=== PATIENT | male | born 1960 ===

== ENCOUNTER 2022-12-03 20:52 | Emergency (ER) | payer BC, SELFPAY ==
[2022-12-03 21:06] VITALS: BP 133/73; PULSE 85; RESP 16; TEMP 36.6; O2SAT 96; BMI 25.0
--- NOTE | 2022-12-03 21:13 | DI.RAD.S_ITS ---
PROCEDURE: XR TOE RT MIN 2V INDICATIONS: black on bottom, white, swollen TECHNIQUE: AP view of the foot and 2 additional views of the great toe acquired. COMPARISON: None. FINDINGS: Bones: There is moderate joint space narrowing at the 1st metatarsophalangeal joint with periarticular sclerosis and lucencies as well as irregularity along the articular surfaces. Soft tissues: There is periarticular soft tissue swelling at the 1st metatarsophalangeal joint. IMPRESSION: 1. Bony irregularity along the 1st metatarsophalangeal joint with periarticular sclerosis. The differential includes septic arthritis/osteomyelitis versus an inflammatory arthropathy. Dictated by: Satya Hook M.D. on 12/03/2022 at 22:46 Approved by: Satya Hook M.D. on 12/03/2022 at 22:51
[2022-12-03 21:33] LABS: Add Manual Diff / Slide Review NO; Basophils Absolute Auto 100 /uL (0-100); Basophils Percent Auto 0.6 % (0-2); Eosinophils Absolute Auto 200 /uL (0-450); Eosinophils Percent Auto 2.4 % (2-4); Hematocrit 38.6 % (41-53); Hemoglobin 13.6 g/dL (13.5-17.5); Lymphocytes Absolute Auto 1800 /uL (1100-4500); Lymphocytes Percent Auto 17.9 % (25-40); Mean Corpuscular HGB Conc 35.3 % (30-36); Mean Corpuscular Hemoglobin 33.4 PG (26-34); Mean Corpuscular Volume 94.7 fL (80-100); Monocytes Absolute Auto 700 /uL (0-900); Monocytes Percent Auto 7.2 % (3-14); Neutrophils Absolute Auto 7300 /uL (1500-7000); Neutrophils Percent Auto 71.9 % (50-75); Platelet Count 319 X10^3/uL (150-400); Red Blood Cell Count 4.08 X10^6/uL (4.5-5.9); Red Cell Distribution Width 12.7 % (11.6-14.8); White Blood Cell Count 10.1 X10^3/uL (4.5-11.0)
[2022-12-03 21:39] LABS: INR 1.1 (0.9-1.3); Prothrombin Time 12.4 SECONDS (10.1-12.7)
[2022-12-03 21:41] LABS: PTT Partial Thromboplastin Tim 31 SECONDS (26-36)
[2022-12-03 21:44] LABS: Lactate (Lactic Acid) 2.2 mmol/L (0.7-2.1)
[2022-12-03 21:46] LABS: Alanine Aminotransferase 23 IU/L (<50); Albumin 4.3 g/dL (3.5-5.0); Albumin Globulin Ratio 1.2 (1.0-2.8); Alkaline Phosphatase 93 U/L (38-126); Aspartate Aminotransferase 28 IU/L (17-59); BUN Creatinine Ratio 15.9 (6-22); Bilirubin Total 0.6 mg/dL (0.2-1.3); Blood Urea Nitrogen 14 mg/dL (9-20); Calcium 9.1 mg/dL (8.4-10.2); Carbon Dioxide 23 mmol/L (22-32); Chloride 94 mmol/L (98-107); Estimated Glomerular Filt Rate > 60 mL/min (>60); Globulin 3.7 g/dL (1.7-4.1); Glucose 351 mg/dL (80-110); HEMOLYSIS < 15 (0-50); Lipase 162 U/L (23-300); Potassium 4.4 mmol/L (3.4-5.1); Sodium 129 mmol/L (137-145)
[2022-12-03 22:49] VITALS: PULSE 79; O2SAT 96
--- NOTE | 2022-12-03 22:50 | ED.WOUNDLAC ---
HPI - Wound/Laceration General Chief Complaint: Wound/Laceration Stated Complaint: Swollen foot Time Seen by Provider: 12/03/22 22:45 Source: patient and family Mode of arrival: Ambulatory History of Present Illness HPI narrative: Patient is a 62-year-old male. A une-wutuiue-qzdyfbjvi diabetic who is here for evaluation redness and some discomfort to the 2nd toe on his right foot. He states that he started to notice it becoming somewhat uncomfortable couple days ago but was really over the past 24 hours that he is noticed the redness. He states he normally has feeling in the toe but has decreased feeling today. States there is redness on the top of his foot. No drainage. No specific trauma. Has never had anything like this in the past. He has been trying to treated at home with alcohol and topical antibiotic ointment but because it turned red he decided to come to the ER to have it evaluated. Related Data Home Medications Medication Instructions Recorded Confirmed aspirin 81 mg tablet 81 mg PO DAILY 12/03/22 12/03/22 empagliflozin 25 mg tablet 25 mg PO DAILY 12/03/22 12/03/22 (Jardiance) lisinopril 20 mg tablet 20 mg PO DAILY 12/03/22 12/03/22 Previous Rx's Medication Instructions Recorded atorvastatin 80 mg tablet (Lipitor) 80 mg PO HS #90 tabs 09/10/16 hydrochlorothiazide 12.5 mg 12.5 mg PO QDAY #90 caps 09/17/16 capsule (Microzide) metformin 1,000 mg tablet 1,000 mg PO BID #180 tabs 09/17/16 pioglitazone 45 mg tablet (Actos) 45 mg PO QDAY #90 tabs 09/17/16 clindamycin HCl 300 mg capsule 300 mg PO QID 7 days #28 caps 12/04/22 Allergies Allergy/AdvReac Type Severity Reaction Status Date / Time No Known Drug Allergies Allergy Verified 12/03/22 21:06 Patient History Social History Smoking Status: Former smoker Smoking Status: Former smoker alcohol intake frequency: 3 or more drinks per day Alcohol type: beer Substance Use Type: does not use Exam Initial Vital Signs Initial Vital Signs: Vital Signs Temperature 97.9 F 12/03/22 21:06 Pulse Rate 85 12/03/22 21:06 Respiratory Rate 16 12/03/22 21:06 Blood Pressure 133/73 12/03/22 21:06 Pulse Oximetry 96 12/03/22 21:06 Oxygen Delivery Method Room Air 12/03/22 21:06 Const General: cooperative and No ill appearing Cardio Pulses: dorsalis pedis present on the right Skin Other: Patient has erythema to the right 2nd toe. A circumferential. It does extend up to the dorsum of the right forefoot. There is also a ulceration with central necrosis on the volar aspect. Neuro Other: Decreased sensation to light touch to the right 2nd toe Extrem Other: Swelling and redness to the right 2nd toe. Course Orders Ordered: ED Orders 12/03/22 21:13 XR toe RT min 2V Stat 12/03/22 21:21 Complete Blood Count AUTO DIFF Stat Comprehensive Metabolic Panel Stat Lactate (Lactic Acid) Stat Lipase Stat PTT Partial Thromboplastin Tito Stat Procalcitonin Stat Prothrombin Time INR Stat Discontinued Medications Clindamycin Phosphate (Cleocin) 900 mg in 50 mls @ 50 mls/hr IV NOW ONE Stop: 12/03/22 23:49 Last Infusion: 12/04/22 00:16 Dose: 0 mls/hr Documented By: Admin: 12/03/22 23:09 Dose: 50 mls/hr Documented By: ENEDINA Vital Signs Vital signs: Vital Signs - 8 hr 12/03/22 21:06 12/03/22 22:49 12/04/22 00:16 Temperature 97.9 F Pulse Rate 85 79 73 Respiratory Rate 16 16 Blood Pressure 133/73 138/77 Pulse Oximetry 96 96 97 Oxygen Delivery Method Room Air Room Air MDM - Wound/Laceration Lab Data Attestation: I reviewed the patient's lab results. 12/03/22 21:21 12/03/22 21:21 Labs: Lab Results 12/03/22 12/03/22 12/03/22 Range/Units 21:21 21:21 21:21 WBC 10.1 (4.5-11.0) X10^3/uL RBC 4.08 L (4.5-5.9) X10^6/uL Hgb 13.6 (13.5-17.5) g/dL Hct 38.6 L (41-53) % MCV 94.7 (80-100) fL MCH 33.4 (26-34) PG MCHC 35.3 (30-36) % RDW 12.7 (11.6-14.8) % Plt Count 319 (150-400) X10^3/uL Neut % (Auto) 71.9 (50-75) % Lymph % (Auto) 17.9 L (25-40) % [place] % (Auto) 7.2 (3-14) % Eos % (Auto) 2.4 (2-4) % Baso % (Auto) 0.6 (0-2) % Neut # (Auto) 7300 H (3730-3618) /uL Lymph # (Auto) 1800 (4193-8790) /uL [place] # (Auto) 700 (0-900) /uL Eos # (Auto) 200 (0-450) /uL Baso # (Auto) 100 (0-100) /uL PT 12.4 (10.1-12.7) SECONDS INR 1.1 (0.9-1.3) APTT 31 (26-36) SECONDS Sodium 129 L (137-145) mmol/L Potassium 4.4 (3.4-5.1) mmol/L Chloride 94 L (98-107) mmol/L Carbon Dioxide 23 (22-32) mmol/L BUN 14 (9-20) mg/dL Creatinine 0.88 (0.66-1.25) mg/dL Estimated GFR > 60 (>60) mL/min BUN/Creatinine Ratio 15.9 (6-22) Glucose 351 H (80-110) mg/dL Lactate (0.7-2.1) mmol/L Calcium 9.1 (8.4-10.2) mg/dL Total Bilirubin 0.6 (0.2-1.3) mg/dL AST 28 (17-59) IU/L ALT 23 (<50) IU/L Alkaline Phosphatase 93 (38-126) U/L Total Protein 8.0 (6.3-8.2) g/dL Albumin 4.3 (3.5-5.0) g/dL Globulin 3.7 (1.7-4.1) g/dL Albumin/Globulin Ratio 1.2 (1.0-2.8) Lipase 162 (23-300) U/L Procalcitonin 0.10 (<0.5) ng/mL 12/03/22 12/03/22 Range/Units 21:21 23:42 WBC (4.5-11.0) X10^3/uL RBC (4.5-5.9) X10^6/uL Hgb (13.5-17.5) g/dL Hct (41-53) % MCV (80-100) fL MCH (26-34) PG MCHC (30-36) % RDW (11.6-14.8) % Plt Count (150-400) X10^3/uL Neut % (Auto) (50-75) % Lymph % (Auto) (25-40) % [place] % (Auto) (3-14) % Eos % (Auto) (2-4) % Baso % (Auto) (0-2) % Neut # (Auto) (6082-0501) /uL Lymph # (Auto) (5320-7694) /uL [place] # (Auto) (0-900) /uL Eos # (Auto) (0-450) /uL Baso # (Auto) (0-100) /uL PT (10.1-12.7) SECONDS INR (0.9-1.3) APTT (26-36) SECONDS Sodium (137-145) mmol/L Potassium (3.4-5.1) mmol/L Chloride (98-107) mmol/L Carbon Dioxide (22-32) mmol/L BUN (9-20) mg/dL Creatinine (0.66-1.25) mg/dL Estimated GFR (>60) mL/min BUN/Creatinine Ratio (6-22) Glucose (80-110) mg/dL Lactate 2.2 H 1.9 (0.7-2.1) mmol/L Calcium (8.4-10.2) mg/dL Total Bilirubin (0.2-1.3) mg/dL AST (17-59) IU/L ALT (<50) IU/L Alkaline Phosphatase (38-126) U/L Total Protein (6.3-8.2) g/dL Albumin (3.5-5.0) g/dL Globulin (1.7-4.1) g/dL Albumin/Globulin Ratio (1.0-2.8) Lipase (23-300) U/L Procalcitonin (<0.5) ng/mL Imaging Data Extremity x-ray #1: Radiologist's Impression: PROCEDURE:? XR TOE RT MIN 2V ? INDICATIONS:? black on bottom, white, swollen ? TECHNIQUE:? AP view of the foot and 2 additional views of the great toe acquired.? ? COMPARISON:? None. ? FINDINGS:? ? Bones:? There is moderate joint space narrowing at the 1st metatarsophalangeal joint with periarticular sclerosis and lucencies as well as irregularity along the articular surfaces. ? Soft tissues:? There is periarticular soft tissue swelling at the 1st metatarsophalangeal joint. ? IMPRESSION:? ? 1. Bony irregularity along the 1st metatarsophalangeal joint with periarticular sclerosis.? The differential includes septic arthritis/osteomyelitis versus an inflammatory arthropathy. MDM Narrative Medical decision making narrative: Patient with an obvious cellulitis to the right 2nd toe with ulcerations on the pad of that toe. There is redness that extends to the forefoot. Patient is nontoxic appearing. His labs are relatively unremarkable. X-ray shows no lytic lesions of that toe. I did discuss the case with Dr. Joe with orthopedic surgery who evaluated the x-ray. She stated that we could attempt outpatient antibiotics and have the patient follow-up in the clinic next week. He was given a dose of antibiotics here in the ER and a prescription was sent to the pharmacy of his choice. He was given very specific return precautions. He expressed understanding and agreement. Discharge Plan Departure Patient Disposition: Home Clinical Impression: Cellulitis Instructions: DI for Cellulitis -- Adult Activity Restrictions/Additional Instructions: [facility]. Please pick them up and start taking them as directed. I also recommend on Tuesday that you contact the orthopedic surgeon at the number provided below for a follow-up. Return to the emergency department for new or worsening symptoms. Prescriptions: New clindamycin HCl 300 mg capsule 300 mg PO QID 7 Days Qty: 28 0RF No Action atorvastatin [Lipitor] 80 MG tablet 80 mg PO HS Qty: 90 1RF pioglitazone [Actos] 45 MG tablet 45 mg PO QDAY Qty: 90 1RF metformin 1,000 MG tablet 1,000 mg PO BID Qty: 180 1RF hydrochlorothiazide [Microzide] 12.5 MG capsule 12.5 mg PO QDAY Qty: 90 1RF lisinopril 20 mg tablet 20 mg PO DAILY Adult Low Dose Aspirin 81 mg Tablet 81 mg PO DAILY Jardiance 25 mg tablet 25 mg PO DAILY Referrals: Tammie Joe MD [Physician] - Slim Hill MD [Primary Care Provider] - Stand Alone Forms: Patient Portal/API
[2022-12-03] MEDS: CLINDAMYCIN 900 MG/50 ML PIGGYBACK 50 MG IV (23:09)
[2022-12-03 23:26] LABS: Reflexed Lactate in 2 Hours Y
[2022-12-04 00:06] LABS: Lactate 2HR (Lactic Acid Rflx) 1.9 mmol/L (0.7-2.1)
[2022-12-04 00:16] VITALS: BP 138/77; PULSE 73; RESP 16; O2SAT 97
== END 2022-12-04 00:17 | disposition home or self-care (01) ==
PROVIDERS: Emergency Provider Emergency Medicine; PCP Family Medicine
DX: L03.031 Cellulitis of right toe (principal)
CPT/HCPCS: 36415; 73660; 80053; 83605; 83690; 84145; 85025; 85610; 85730; 96365; 99284

== ENCOUNTER 2022-12-18 15:55 | Inpatient (IN) | payer BC, SELFPAY ==
[2022-12-18 15:58] VITALS: BP 151/76; PULSE 99; RESP 17; TEMP 36.7; O2SAT 97; BMI 26.2
--- NOTE | 2022-12-18 16:12 | DI.RAD.S_ITS ---
PROCEDURE: XR FOOT RT MIN 3V INDICATIONS: worsening infection TECHNIQUE: 3 views of the foot were acquired. COMPARISON: None. FINDINGS: Bones: 1st MTP joint arthritic changes noted. Intertarsal degenerative irregularity noted as well. Diffuse small vessel vascular calcification. No lytic or blastic lesion. Amputation of the 2nd distal phalangeal tuft noted with soft tissue swelling Soft tissues: No tibiotalar joint effusion. Achilles tendon appears normal. IMPRESSION: Distal 2nd handle tuft amputation with soft tissue swelling. No lytic or blastic lesion Degenerative arthritic changes Small vessel atherosclerotic vascular calcification Approved by: Edison Cordoba M.D. on 12/18/2022 at 16:47
[2022-12-18 16:33] LABS: Add Manual Diff / Slide Review NO; Basophils Absolute Auto 100 /uL (0-100); Basophils Percent Auto 0.8 % (0-2); Eosinophils Absolute Auto 400 /uL (0-450); Eosinophils Percent Auto 3.5 % (2-4); Hematocrit 39.9 % (41-53); Hemoglobin 14.1 g/dL (13.5-17.5); Lymphocytes Absolute Auto 2200 /uL (1100-4500); Lymphocytes Percent Auto 20.3 % (25-40); Mean Corpuscular HGB Conc 35.4 % (30-36); Mean Corpuscular Hemoglobin 33.1 PG (26-34); Mean Corpuscular Volume 93.5 fL (80-100); Monocytes Absolute Auto 800 /uL (0-900); Monocytes Percent Auto 7.1 % (3-14); Neutrophils Absolute Auto 7400 /uL (1500-7000); Neutrophils Percent Auto 68.3 % (50-75); Platelet Count 398 X10^3/uL (150-400); Red Blood Cell Count 4.27 X10^6/uL (4.5-5.9); Red Cell Distribution Width 12.7 % (11.6-14.8); White Blood Cell Count 10.8 X10^3/uL (4.5-11.0)
[2022-12-18 16:42] LABS: INR 1.1 (0.9-1.3); Prothrombin Time 12.2 SECONDS (10.1-12.7)
[2022-12-18 16:44] LABS: PTT Partial Thromboplastin Tim 32 SECONDS (26-36)
[2022-12-18 16:45] LABS: Lactate (Lactic Acid) 2.5 mmol/L (0.7-2.1)
[2022-12-18 16:47] LABS: Alanine Aminotransferase 26 IU/L (<50); Albumin 4.2 g/dL (3.5-5.0); Alkaline Phosphatase 142 U/L (38-126); Aspartate Aminotransferase 30 IU/L (17-59); Bilirubin Total 0.7 mg/dL (0.2-1.3); Blood Urea Nitrogen 19 mg/dL (9-20); Calcium 9.9 mg/dL (8.4-10.2); Carbon Dioxide 27 mmol/L (22-32); Chloride 90 mmol/L (98-107); Estimated Glomerular Filt Rate > 60 mL/min (>60); Globulin 4.2 g/dL (1.7-4.1); Glucose 404 mg/dL (80-110); HEMOLYSIS < 15 (0-50); Lipase 204 U/L (23-300); Potassium 4.5 mmol/L (3.4-5.1); Sodium 127 mmol/L (137-145); Total Protein 8.4 g/dL (6.3-8.2)
--- NOTE | 2022-12-18 16:57 | ED.EXTPRO ---
HPI - Extremity Problem General Chief complaint: Extremity Problem,Nontraumatic Stated complaint: Foot inf. Time Seen by Provider: 12/18/22 16:00 Source: patient Mode of arrival: Ambulatory History of Present Illness HPI Narrative: 62-year-old male [id number] diabetic here for worsening pain, redness and swelling on his right foot. He is had known necrotic tissue on his right 2nd toe and is scheduled for an outpatient toe amputation later in the week. He is now been on his 3rd antibiotic and symptoms are worsening. Thankfully he has no fever or shaking chills and denies nausea, vomiting or diarrhea. He was initially on clindamycin, then Bactrim and currently on Augmentin. He has been taking his other medications as directed. Related Data Home Medications Medication Instructions Recorded Confirmed aspirin 81 mg tablet 81 mg PO DAILY 12/03/22 12/18/22 empagliflozin 25 mg tablet 25 mg PO DAILY 12/03/22 12/18/22 (Jardiance) lisinopril 20 mg tablet 20 mg PO DAILY 12/03/22 12/18/22 Previous Rx's Medication Instructions Recorded atorvastatin 80 mg tablet (Lipitor) 80 mg PO HS #90 tabs 09/10/16 hydrochlorothiazide 12.5 mg 12.5 mg PO QDAY #90 caps 09/17/16 capsule (Microzide) metformin 1,000 mg tablet 1,000 mg PO BID #180 tabs 09/17/16 pioglitazone 45 mg tablet (Actos) 45 mg PO QDAY #90 tabs 09/17/16 Allergies Allergy/AdvReac Type Severity Reaction Status Date / Time No Known Drug Allergies Allergy Verified 12/18/22 15:58 Review of Systems Review of Systems Narrative: GENERAL: Denies chills, fatigue, malaise, fever, sweats. HEENT: Denies sinus pain, ear pain, sore throat, difficulty swallowing, dizziness. RESPIRATORY: Denies dyspnea, cough, wheezing, hemoptysis, sputum. CARDIOVASCULAR: Denies chest pain, palpitations, orthopnea, edema, GASTROINTESTINAL: Denies nausea, vomiting, abdominal pain, diarrhea, constipation, melena. : Denies dysuria, frequency, incontinence, hematuria, urinary retention. MUSCULOSKELETAL: See HPI SKIN: See HPI NEUROLOGIC: Denies weakness, headache, numbness, change in speech, confusion, seizures, incoordination. PSYCHIATRIC: No concerning psychosocial issues. 12 point review of systems is negative except for those stated above Patient History Social History household members: spouse Smoking Status: Former smoker Smoking Status: Former smoker alcohol intake frequency: 3 or more drinks per day Alcohol type: beer Substance Use Type: does not use Exam Narrative Exam Narrative: GENERAL: [62] year old patient appears stated age. Well-developed patient, in mild distress. HEAD: Atraumatic. Normocephalic. EYES: Pupils equal round and reactive. Extraocular motions intact. No scleral icterus. No injection or drainage. ENT: Nose without bleeding, purulent drainage. Throat without erythema, tonsillar hypertrophy or exudate. Airway patent. NECK: Trachea midline. Non tender CARDIOVASCULAR: Regular rate and rhythm without murmurs, gallops, or rubs. RESPIRATORY: Clear to auscultation. Breath sounds equal bilaterally. No wheezes, rales, or rhonchi. GASTROINTESTINAL: Abdomen soft, non-tender, nondistended. EXTREMITIES: Right 2nd toe is necrotic to the PIP with no sensation or drainage, more proximal skin is edematous and erythematous and extending into the base of the 3rd toe and on the dorsum of the foot BACK: Nontender without deformity or crepitance. No flank tenderness. NEURO: AOx3. SKIN: No rash or erythema of visible areas Initial Vital Signs Initial Vital Signs: Vital Signs Temperature 98.1 F 12/18/22 15:58 Pulse Rate 99 H 12/18/22 15:58 Respiratory Rate 17 12/18/22 15:58 Blood Pressure 151/76 H 12/18/22 15:58 Pulse Oximetry 97 12/18/22 15:58 Oxygen Delivery Method Room Air 12/18/22 15:58 Course Orders Ordered: Acetaminophen (Acetaminophen 325 Mg Tablet) 650 mg PO Q6H PRN PRN Reason: Fever/Mild Pain (1-3) Aspirin (Aspirin 81 Mg Chew Tab) 81 mg PO DAILY DANIELLE Atorvastatin Calcium (Atorvastatin 20 Mg Tablet) 80 mg PO BEDTIME DANIELLE Last Admin: 12/18/22 20:43 Dose: Not Given Documented By: Admin: 12/18/22 20:42 Dose: 80 mg Documented By: ANITHA Bisacodyl (Bisacodyl 10 Mg Supp) 10 mg [place] DAILY PRN PRN Reason: Constipation Dextrose (Dextrose 50 % In Water 25 Gm/50 Ml Syringe) 25 gm IV PRN PRN; Protocol PRN Reason: Hypoglycemia Docusate Sodium (Docusate 100 Mg Capsule) 100 mg PO BID DANIELLE Last Admin: 12/18/22 20:42 Dose: 100 mg Documented By: ANITHA Dextrose/Sodium Chloride (D5w Ns) 500 mls @ 21 mls/hr IV CONT DANIELLE Last Admin: 12/18/22 22:34 Dose: 21 mls/hr Documented By: ANITHA Meropenem 1 gm/ Sodium (Chloride) 100 mls @ 200 mls/hr IV Q12H DANIELLE Insulin Human Lispro (Insulin Lispro 100 Unit/Ml 3ml Vial) 0 unit SUBCUT Q6H PRN; Protocol PRN Reason: hyperglyc Last Admin: 12/19/22 03:32 Dose: 2 unit Documented By: ANITHA Co-signed By: KRISH Admin: 12/18/22 22:20 Dose: 4 unit Documented By: ANITHA Co-signed By: KRISH Naloxone HCl (Naloxone 0.4 Mg/Ml Vial) 0.2 mg IV Q2MIN PRN PRN Reason: Opiate Reversal Ondansetron HCl (Ondansetron 4 Mg/2 Ml Inj) 4 mg IV NOW PRN PRN Reason: Nausea And Vomiting Ondansetron HCl (Ondansetron 4 Mg Odt) 4 mg SL NOW PRN PRN Reason: Nausea And Vomiting Ondansetron HCl (Ondansetron 4 Mg/2 Ml Inj) 4 mg IV Q8HR PRN PRN Reason: Nausea And Vomiting Ondansetron HCl (Ondansetron 4 Mg Odt) 4 mg PO Q8HR PRN PRN Reason: Nausea And Vomiting Discontinued Medications Sodium Chloride (Normal Saline 0.9%) 1,000 mls @ 1,000 mls/hr IV BOLUS ONE Stop: 12/18/22 17:53 Last Infusion: 12/18/22 18:14 Dose: 0 mls/hr Documented By: Admin: 12/18/22 17:00 Dose: 1,000 mls/hr Documented By: JORDEN Meropenem 500 mg/ Sodium (Chloride) 100 mls @ 200 mls/hr IV NOW ONE Stop: 12/18/22 17:49 Last Infusion: 12/18/22 18:23 Dose: 0 mls/hr Documented By: Admin: 12/18/22 18:15 Dose: 200 mls/hr Documented By: RL Consultations Consultation #1: discussed with Dr. Figueroa, requests admission to hospitalist given DM and ABX selection Consultation #2: hospitalist (Maria) happy to accept on her service. Requests Merepenem Vital Signs Vital signs: Vital Signs - 8 hr 12/18/22 15:58 Temperature 98.1 F Pulse Rate 99 H Respiratory Rate 17 Blood Pressure 151/76 H Pulse Oximetry 97 Oxygen Delivery Method Room Air MDM - Extremity (Nontraumatic) Lab Data 12/19/22 04:31 12/19/22 04:31 Labs: Lab Results 12/18/22 12/18/22 12/18/22 Range/Units 16:20 16:20 16:20 WBC 10.8 (4.5-11.0) X10^3/uL RBC 4.27 L (4.5-5.9) X10^6/uL Hgb 14.1 (13.5-17.5) g/dL Hct 39.9 L (41-53) % MCV 93.5 (80-100) fL MCH 33.1 (26-34) PG MCHC 35.4 (30-36) % RDW 12.7 (11.6-14.8) % Plt Count 398 (150-400) X10^3/uL Neut % (Auto) 68.3 (50-75) % Lymph % (Auto) 20.3 L (25-40) % [place] % (Auto) 7.1 (3-14) % Eos % (Auto) 3.5 (2-4) % Baso % (Auto) 0.8 (0-2) % Neut # (Auto) 7400 H (2091-5942) /uL Lymph # (Auto) 2200 (1045-0850) /uL [place] # (Auto) 800 (0-900) /uL Eos # (Auto) 400 (0-450) /uL Baso # (Auto) 100 (0-100) /uL ESR (0-15) MM/HR PT 12.2 (10.1-12.7) SECONDS INR 1.1 (0.9-1.3) APTT 32 (26-36) SECONDS Sodium 127 L (137-145) mmol/L Potassium 4.5 (3.4-5.1) mmol/L Chloride 90 L (98-107) mmol/L Carbon Dioxide 27 (22-32) mmol/L BUN 19 (9-20) mg/dL Creatinine 0.95 (0.66-1.25) mg/dL Estimated GFR > 60 (>60) mL/min BUN/Creatinine Ratio 20.0 (6-22) Glucose 404 H (80-110) mg/dL Lactate (0.7-2.1) mmol/L Calcium 9.9 (8.4-10.2) mg/dL Total Bilirubin 0.7 (0.2-1.3) mg/dL AST 30 (17-59) IU/L ALT 26 (<50) IU/L Alkaline Phosphatase 142 H (38-126) U/L C-Reactive Protein (<1.0) mg/dL Total Protein 8.4 H (6.3-8.2) g/dL Albumin 4.2 (3.5-5.0) g/dL Globulin 4.2 H (1.7-4.1) g/dL Albumin/Globulin Ratio 1.0 (1.0-2.8) Lipase 204 (23-300) U/L Procalcitonin 0.10 (<0.5) ng/mL 12/18/22 12/18/22 12/18/22 Range/Units 16:20 16:20 16:20 WBC (4.5-11.0) X10^3/uL RBC (4.5-5.9) X10^6/uL Hgb (13.5-17.5) g/dL Hct (41-53) % MCV (80-100) fL MCH (26-34) PG MCHC (30-36) % RDW (11.6-14.8) % Plt Count (150-400) X10^3/uL Neut % (Auto) (50-75) % Lymph % (Auto) (25-40) % [place] % (Auto) (3-14) % Eos % (Auto) (2-4) % Baso % (Auto) (0-2) % Neut # (Auto) (8682-1256) /uL Lymph # (Auto) (6624-8427) /uL [place] # (Auto) (0-900) /uL Eos # (Auto) (0-450) /uL Baso # (Auto) (0-100) /uL ESR 71 H (0-15) MM/HR PT (10.1-12.7) SECONDS INR (0.9-1.3) APTT (26-36) SECONDS Sodium (137-145) mmol/L Potassium (3.4-5.1) mmol/L Chloride (98-107) mmol/L Carbon Dioxide (22-32) mmol/L BUN (9-20) mg/dL Creatinine (0.66-1.25) mg/dL Estimated GFR (>60) mL/min BUN/Creatinine Ratio (6-22) Glucose (80-110) mg/dL Lactate 2.5 H (0.7-2.1) mmol/L Calcium (8.4-10.2) mg/dL Total Bilirubin (0.2-1.3) mg/dL AST (17-59) IU/L ALT (<50) IU/L Alkaline Phosphatase (38-126) U/L C-Reactive Protein 4.0 H (<1.0) mg/dL Total Protein (6.3-8.2) g/dL Albumin (3.5-5.0) g/dL Globulin (1.7-4.1) g/dL Albumin/Globulin Ratio (1.0-2.8) Lipase (23-300) U/L Procalcitonin (<0.5) ng/mL MDM Narrative Medical decision making narrative: 62-year-old male diabetic presents with worsening presentation of a known necrotic Discharge Plan Departure Patient Disposition: Admitted As Inpatient Clinical Impression: Cellulitis of foot Admit Date/Time: 12/18/22 17:53 Admit Provider: Rhea Escobar
[2022-12-18] MEDS: SODIUM CHLORIDE 0.9% 1,000 ML 1000 ML IV (17:00)
[2022-12-18 17:02] LABS: Erythrocyte Sedimentation Rate 71 MM/HR (0-15)
--- NOTE | 2022-12-18 17:05 | PC.NURSE ---
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 Patient has wound covered but reports it is black and the toe is malodorous. Ambulates with limp, states discomfort in foot. Top of foot is erythemic and edematous. No streaking present up the leg.
[2022-12-18] MEDS: MEROPENEM 500 MG in SODIUM CHLORIDE 0.9% 100 ML 200 MG IV (18:15)
[2022-12-18 18:17] VITALS: BMI 26.2
[2022-12-18 18:26] LABS: Reflexed Lactate in 2 Hours Y
[2022-12-18 18:33] VITALS: BP 163/81; PULSE 76; RESP 16; TEMP 36.1; O2SAT 99
[2022-12-18 18:41] LABS: Lactate 2HR (Lactic Acid Rflx) 1.4 mmol/L (0.7-2.1)
[2022-12-18 20:00] VITALS: BP 156/76; PULSE 65; RESP 17; TEMP 36.1; O2SAT 100
[2022-12-18] MEDS: ATORVASTATIN 20 MG TABLET 80 MG PO (20:42)
[2022-12-18] MEDS: DOCUSATE 100 MG CAPSULE PO (20:42)
--- NOTE | 2022-12-18 20:53 | PM.HP.1 ---
History of Present Illness History of Present Illness Chief complaint: Foot inf. PFSH Social History household members: spouse Smoking Status: Former smoker Comment: 62 y/o diabetic, developed Rt 2nd toe ulcer, got infected, seen by orthopedic Sx and was supposed to have elective amputation in a few days. He failed outpt abx and came to hospital with advancing cellulitis, towards the dorsum of the foot and 3rd toe. Sx consulted by ED, recommended admission, coverage with Meropenem (already started on it) and likely amputation in AM. Meds Home Medications and Allergies Home Medications Medication Instructions Recorded Confirmed Type atorvastatin 80 mg tablet (Lipitor) 80 mg PO HS #90 tabs 09/10/16 12/18/22 Rx hydrochlorothiazide 12.5 mg 12.5 mg PO QDAY #90 caps 09/17/16 12/18/22 Rx capsule (Microzide) metformin 1,000 mg tablet 1,000 mg PO BID #180 tabs 09/17/16 12/18/22 Rx pioglitazone 45 mg tablet (Actos) 45 mg PO QDAY #90 tabs 09/17/16 12/18/22 Rx aspirin 81 mg tablet 81 mg PO DAILY 12/03/22 12/18/22 History empagliflozin 25 mg tablet 25 mg PO DAILY 12/03/22 12/18/22 History (Jardiance) lisinopril 20 mg tablet 20 mg PO DAILY 12/03/22 12/18/22 History Allergies Allergy/AdvReac Type Severity Reaction Status Date / Time No Known Drug Allergies Allergy Verified 12/18/22 15:58 Review of Systems Constitutional Comments: w/o fever or chills Cardiovascular Comments: w/o chest pain or palpitations Gastrointestinal Comments: w/o complaints Genitourinary Comments: w/o dysuria Neurologic Comments: chronic sensory loss on toes - neuropathy Exam Vital Signs (past 8 hours): - 12/18/22 15:58 12/18/22 18:33 Temperature 98.1 F 97.0 F L Pulse Rate 99 H 76 Respiratory Rate 17 16 Blood Pressure 151/76 H 163/81 H Pulse Oximetry 97 99 Oxygen Delivery Method Room Air Oxygen Delivery Method Room Air Const Other: Sitting in bed in no distress, at bedside Resp Other: CTA Cardio Other: RRR Neuro Other: w/o acute focal deficits Psych Other: appropriate mood Objective Labs 12/18/22 16:20 12/18/22 16:20 Labs: Laboratory Results - last 24 hr 12/18/22 12/18/22 12/18/22 16:20 16:20 16:20 WBC 10.8 RBC 4.27 L Hgb 14.1 Hct 39.9 L MCV 93.5 MCH 33.1 MCHC 35.4 RDW 12.7 Plt Count 398 Neut % (Auto) 68.3 Lymph % (Auto) 20.3 L [place] % (Auto) 7.1 Eos % (Auto) 3.5 Baso % (Auto) 0.8 Neut # (Auto) 7400 H Lymph # (Auto) 2200 [place] # (Auto) 800 Eos # (Auto) 400 Baso # (Auto) 100 ESR PT 12.2 INR 1.1 APTT 32 Sodium 127 L Potassium 4.5 Chloride 90 L Carbon Dioxide 27 BUN 19 Creatinine 0.95 Estimated GFR > 60 BUN/Creatinine Ratio 20.0 Glucose 404 H Lactate Calcium 9.9 Total Bilirubin 0.7 AST 30 ALT 26 Alkaline Phosphatase 142 H C-Reactive Protein Total Protein 8.4 H Albumin 4.2 Globulin 4.2 H Albumin/Globulin Ratio 1.0 Lipase 204 Procalcitonin 0.10 12/18/22 12/18/22 12/18/22 16:20 16:20 16:20 WBC RBC Hgb Hct MCV MCH MCHC RDW Plt Count Neut % (Auto) Lymph % (Auto) [place] % (Auto) Eos % (Auto) Baso % (Auto) Neut # (Auto) Lymph # (Auto) [place] # (Auto) Eos # (Auto) Baso # (Auto) ESR 71 H PT INR APTT Sodium Potassium Chloride Carbon Dioxide BUN Creatinine Estimated GFR BUN/Creatinine Ratio Glucose Lactate 2.5 H Calcium Total Bilirubin AST ALT Alkaline Phosphatase C-Reactive Protein 4.0 H Total Protein Albumin Globulin Albumin/Globulin Ratio Lipase Procalcitonin 12/18/22 18:19 WBC RBC Hgb Hct MCV MCH MCHC RDW Plt Count Neut % (Auto) Lymph % (Auto) [place] % (Auto) Eos % (Auto) Baso % (Auto) Neut # (Auto) Lymph # (Auto) [place] # (Auto) Eos # (Auto) Baso # (Auto) ESR PT INR APTT Sodium Potassium Chloride Carbon Dioxide BUN Creatinine Estimated GFR BUN/Creatinine Ratio Glucose Lactate 1.4 Calcium Total Bilirubin AST ALT Alkaline Phosphatase C-Reactive Protein Total Protein Albumin Globulin Albumin/Globulin Ratio Lipase Procalcitonin Assessment & Plan Assessment & Plan narrative: 1. Rt 2nd toe OM, Rt foot cellulitis - Meropenem for now - NPO after midnight, Sx for amputation and OR cultures 2. DM - oral hypoglycemics on hold (Jardiance, Actos, metformin) - SS periop - restart postop - D5 / IVF tonight 3. Hyponatremia - NS IVF tonight 4. HLD - statin 5. HTN - HCTZ and Lisinopril at home - on hold today - restart postop
[2022-12-18] MEDS: INSULIN LISPRO 100 UNIT/ML 3ML VIAL SUBCUT (22:20)
[2022-12-18] MEDS: DEXTROSE 5%-0.9% NS 500 ML 21 ML IV (22:34)
[2022-12-19] VITALS (9 sets, daily range): BP systolic 123–173; BP diastolic 66–89; PULSE 61–75; RESP 11–20; TEMP 36.3–37.2; O2SAT 96–100; BMI 26.2
[2022-12-19] MEDS: INSULIN LISPRO 100 UNIT/ML 3ML VIAL SUBCUT ×5 (03:32→20:13)
[2022-12-19 04:56] LABS: Add Manual Diff / Slide Review NO; Basophils Absolute Auto 0 /uL (0-100); Basophils Percent Auto 0.6 % (0-2); Eosinophils Absolute Auto 400 /uL (0-450); Eosinophils Percent Auto 5.4 % (2-4); Hemoglobin 12.3 g/dL (13.5-17.5); Lymphocytes Absolute Auto 1800 /uL (1100-4500); Lymphocytes Percent Auto 22.1 % (25-40); Mean Corpuscular HGB Conc 35.2 % (30-36); Mean Corpuscular Hemoglobin 33.4 PG (26-34); Monocytes Absolute Auto 500 /uL (0-900); Monocytes Percent Auto 6.5 % (3-14); Neutrophils Absolute Auto 5400 /uL (1500-7000); Neutrophils Percent Auto 65.4 % (50-75); Platelet Count 336 X10^3/uL (150-400); Red Blood Cell Count 3.68 X10^6/uL (4.5-5.9); Red Cell Distribution Width 12.8 % (11.6-14.8); White Blood Cell Count 8.2 X10^3/uL (4.5-11.0)
[2022-12-19 05:07] LABS: BUN Creatinine Ratio 27.4 (6-22); Blood Urea Nitrogen 20 mg/dL (9-20); Calcium 9.1 mg/dL (8.4-10.2); Carbon Dioxide 28 mmol/L (22-32); Chloride 96 mmol/L (98-107); Estimated Glomerular Filt Rate > 60 mL/min (>60); Glucose 275 mg/dL (80-110); HEMOLYSIS < 15 (0-50); Potassium 4.1 mmol/L (3.4-5.1); Sodium 131 mmol/L (137-145)
[2022-12-19] MEDS: MEROPENEM 1 GM in SODIUM CHLORIDE 0.9% 100 ML IV (07:14)
[2022-12-19] MEDS: LACTATED RINGERS 1,000 ML 42 ML IV (08:57)
--- NOTE | 2022-12-19 09:00 | CM.DANOTE ---
Patient is a 62 yo male who was admitted on 12/18/22 for Foot Infection. Pt has [employer] for insurance and his PCP is Slim Hill. EMR was reviewed. Per MD, pt had Ortho outpt appt and receiving oral abx for toe ulcer/infection with plan of upcoming toe amputation and pt failed outpt abx and admitted for IV-Abx and likely Ortho surgery. SW met bedside with pt and explained role and pt confirms he lives on [place] at home with his spouse and pt is very active and independent at baseline and does not use DME. 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 Pt states his spouse works at the [employer] and very aware of resources or DME but pt does not anticipate any needs at d/c. Pt states his spouse transported him to the office and is staying in [place] with family and plans to transport pt back at discharge. SW alerted the RN that no Ortho Consult order placed in EMR yet and unclear if Ortho will consult and possible surgery while pt admitted. Plan: SW to follow closely for Ortho Consult and recommendations to determine if toe amputation to happen during this admission or outpt and then PT eval to confirm safe d/c to home via spouse POV. MARTA Pang Discharge Planning/Care Management CM Discharge Assessment Start: 12/19/22 08:55 Freq: Status: Active Protocol: Document 12/19/22 08:55 BF (Rec: 12/19/22 08:59 BF [id number]) Discharge Planning Assessment Assigned Electrical Test Technician MARTA Hunter DPOA/Assigned Designee Name informally spouse Advance Directives? No Advance Directives on File No History Provided By Patient,Medical Record Has Patient been admitted in last 30 No days? Prior Living Arrangements House Household Members spouse Type of transporation used prior to Drives own vehicle admit Comment delivers propane to all of [place] Independent with ADL's Yes Is patient alert and oriented? Yes Caregiver for Another No Community Services used prior to Physical Therapy admission: Comment pending toe amputation surg and PT eval Barriers to Discharge No Discharge Plan Home Transportation Arrangement Spouse stayed in [place] with family and plans to provide transport back Referrals Initiated None needed Additional Comment Pending surg and PT eval Whiteboard Updated in Patient Room with Yes name and ext. # of Electrical Test Technician Review Status In Process Please Provide Date Initial DC 12/19/22 Assessment Was Performed Next Review Type Continued Stay Review
--- NOTE | 2022-12-19 09:03 | PM.HP.1 ---
History of Present Illness History of Present Illness Date Patient Seen: 12/19/22 Time Patient Seen: 09:03 Chief complaint: Foot inf. Narrative: This is a pleasant 62-year-old male who presents with right 2nd toe necrosis. He has a past medical history of type 2 diabetes. He has been seen previously by Dr. Andrea and had surgery planned for this however due to progressive erythema we have decided to go forward with surgery earlier. He was admitted last night and started on IV antibiotics. Currently he states he has some sensation in his other toes although slight amount of neuropathy. Otherwise denies any recent nausea, vomiting, diarrhea, fevers, chills or any other constitutional symptoms. No other complaints at this time. [facility] Social History household members: spouse Smoking Status: Former smoker Meds Home Medications and Allergies Home Medications Medication Instructions Recorded Confirmed Type atorvastatin 80 mg tablet (Lipitor) 80 mg PO HS #90 tabs 09/10/16 12/18/22 Rx hydrochlorothiazide 12.5 mg 12.5 mg PO QDAY #90 caps 09/17/16 12/18/22 Rx capsule (Microzide) metformin 1,000 mg tablet 1,000 mg PO BID #180 tabs 09/17/16 12/18/22 Rx pioglitazone 45 mg tablet (Actos) 45 mg PO QDAY #90 tabs 09/17/16 12/18/22 Rx aspirin 81 mg tablet 81 mg PO DAILY 12/03/22 12/18/22 History empagliflozin 25 mg tablet 25 mg PO DAILY 12/03/22 12/18/22 History (Jardiance) lisinopril 20 mg tablet 20 mg PO DAILY 12/03/22 12/18/22 History Allergies Allergy/AdvReac Type Severity Reaction Status Date / Time No Known Drug Allergies Allergy Verified 12/18/22 15:58 Review of Systems Review of Systems ROS: Yes All systems reviewed with the patient and are negative except as otherwise documented Exam Vital Signs (past 8 hours): - 12/19/22 04:00 12/19/22 08:57 Temperature 98.1 F 97.9 F Pulse Rate 62 75 Respiratory Rate 18 20 Blood Pressure 132/72 173/89 H Pulse Oximetry 98 99 Oxygen Delivery Method Room Air Oxygen Delivery Method Room Air Narrative Exam Narrative: HEENT: Head atraumatic eyes anicteric moist mucous membranes Cardiovascular: Palpable peripheral pulses extremities are warm and well perfused Respiratory: Breathing comfortably on room air Psychiatric: Appropriate mood and affect Neuro: No acute deficits Musculoskeletal: Exam of right lower extremity demonstrates necrosis that goes just distal to the 2nd toe MTP. Foul odor associated. Slight amount of erythema however this has significantly decreased compared to photos that I saw yesterday. He is able to wiggle his other toes. He has 2+ dorsalis pedis pulse with brisk capillary refill less than 2 seconds. Other than the 2nd toe he has sensation intact to light touch in sural, saphenous, superficial peroneal and deep peroneal nerve distributions. Objective Imaging Right foot: My impression: AP oblique and lateral of the right foot reviewed preoperatively today demonstrates blunting of the distal phalanx with some likely osteonecrosis. 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 Labs 12/19/22 04:31 12/19/22 04:31 Labs: Laboratory Results - last 24 hr 12/18/22 12/18/22 12/18/22 16:20 16:20 16:20 WBC 10.8 RBC 4.27 L Hgb 14.1 Hct 39.9 L MCV 93.5 MCH 33.1 MCHC 35.4 RDW 12.7 Plt Count 398 Neut % (Auto) 68.3 Lymph % (Auto) 20.3 L [place] % (Auto) 7.1 Eos % (Auto) 3.5 Baso % (Auto) 0.8 Neut # (Auto) 7400 H Lymph # (Auto) 2200 [place] # (Auto) 800 Eos # (Auto) 400 Baso # (Auto) 100 ESR PT 12.2 INR 1.1 APTT 32 Sodium 127 L Potassium 4.5 Chloride 90 L Carbon Dioxide 27 BUN 19 Creatinine 0.95 Estimated GFR > 60 BUN/Creatinine Ratio 20.0 Glucose 404 H Lactate Calcium 9.9 Total Bilirubin 0.7 AST 30 ALT 26 Alkaline Phosphatase 142 H C-Reactive Protein Total Protein 8.4 H Albumin 4.2 Globulin 4.2 H Albumin/Globulin Ratio 1.0 Lipase 204 Procalcitonin 0.10 12/18/22 12/18/22 12/18/22 16:20 16:20 16:20 WBC RBC Hgb Hct MCV MCH MCHC RDW Plt Count Neut % (Auto) Lymph % (Auto) [place] % (Auto) Eos % (Auto) Baso % (Auto) Neut # (Auto) Lymph # (Auto) [place] # (Auto) Eos # (Auto) Baso # (Auto) ESR 71 H PT INR APTT Sodium Potassium Chloride Carbon Dioxide BUN Creatinine Estimated GFR BUN/Creatinine Ratio Glucose Lactate 2.5 H Calcium Total Bilirubin AST ALT Alkaline Phosphatase C-Reactive Protein 4.0 H Total Protein Albumin Globulin Albumin/Globulin Ratio Lipase Procalcitonin 12/18/22 12/19/22 12/19/22 18:19 04:31 04:31 WBC 8.2 RBC 3.68 L Hgb 12.3 L Hct 35.0 L MCV 95.0 MCH 33.4 MCHC 35.2 RDW 12.8 Plt Count 336 Neut % (Auto) 65.4 Lymph % (Auto) 22.1 L [place] % (Auto) 6.5 Eos % (Auto) 5.4 H Baso % (Auto) 0.6 Neut # (Auto) 5400 Lymph # (Auto) 1800 [place] # (Auto) 500 Eos # (Auto) 400 Baso # (Auto) 0 ESR PT INR APTT Sodium 131 L Potassium 4.1 Chloride 96 L Carbon Dioxide 28 BUN 20 Creatinine 0.73 Estimated GFR > 60 BUN/Creatinine Ratio 27.4 H Glucose 275 H D Lactate 1.4 Calcium 9.1 Total Bilirubin AST ALT Alkaline Phosphatase C-Reactive Protein Total Protein Albumin Globulin Albumin/Globulin Ratio Lipase Procalcitonin Assessment & Plan Assessment & Plan narrative: Assessment: 62-year-old male with diabetic neuropathy and a necrotic right 2nd toe Plan: Right 2nd toe amputation at the metatarsophalangeal joint. Risks and benefits of surgery were discussed again including the risk of infection, damage to internal structures, bleeding, nerve injury, instability, need for revision surgery, blood clots, anesthesia and . No guarantees were made regarding outcomes. Patient expressed understanding and accepted these risks and wished to go forward with surgery and consent was signed.
--- NOTE | 2022-12-19 09:28 | SUR.OPER ---
Supine on padded OR bed, head on pillow, arms secured on padded arm boards at <90 degrees abduction, legs uncrossed, safety belt at abdomen, tape over blanket over lower left leg. Operative leg elevated on blankets
--- NOTE | 2022-12-19 09:28 | PC.NURSE ---
Pt is A&OX4, VSS, afebrile on RA. He is independent in his room, and denies pain. IV antibiotic Merepenem completed, BG check this a.m. 231 and covered with 2 units lispro per SSI. Pre op nurse arrived to transport patient to PREOP at 0845 this a.m.
--- NOTE | 2022-12-19 10:07 | PM.OP.1 ---
Operative Date/Time/Diagnoses Date of procedure: 12/19/22 Time of procedure: 10:07 Pre-op diagnosis: Right necrotic 2nd toe Post-op diagnosis: same Procedure & Clinicians Procedure: Right 2nd toe amputation (at the MTP) Same procedure as scheduled: Yes Indications: This is a 62-year-old type 2 diabetic male who presented to the ED with rising erythema and a necrotic 2nd toe. In order for infection control we discussed possible 2nd toe amputation. We again discussed risks before surgery. He acknowledged risks and wished to go forward with surgery. Surgeon: Hernan Figueroa Click Yes if Unassisted: No Anesthesia Type: General Operative Notes Findings: Necrosis of the right 2nd toe which ended just distal to the MTP joint Closure Type: primary Prosthetic devices, grafts, tissues, transplants, or devices: Packing intentionally left in the wound with a wick Estimated Blood Loss (mL): 10 Blood products transfused: none Tourniquet time (min): 29 Procedure in detail: Patient was met in preoperative holding area. We discussed right 2nd toe amputation at the MTP. Risks and benefits of surgery were discussed patient in detail. He expressed understanding with these risks and wished to go forward with surgery. His right 2nd toe was marked with my initials. His last dose of meropenem was given on the floor and so he was not re-dosed with antibiotics. He was brought back to the operating room and placed supine on the operating table with a small bump underneath the right foot. This was prepped and draped in the standard sterile fashion. A time-out was performed in my initials were again examined on the right foot. Tourniquet was inflated to 250 mmHg. I began with the incision around the 2nd toe making a fishmouth incision both dorsally and plantarly. The toe was disarticulated. Active bleeders were cauterized. There was then thoroughly irrigated with 3 L of saline. The incision was then closed with interrupted 2-0 nylon sutures leaving an area open for packing. Packing material was placed with a wick. The toe was then dressed with Xeroform 4x4s cast padding and an Abner bandage. He was then awoken from anesthesia and taken to the postoperative recovery unit. Complications: none Post-operative Condition: stable Disposition: PACU Plan for aftercare: Patient will stay for 24 more hours of IV antibiotics and for wound training (he will need to be sent home with plenty of packing material and learn how to do this by his own self) and will go home with oral antibiotics for 2 weeks
--- NOTE | 2022-12-19 10:40 | PC.NURSE ---
patient returned to room from PACU at 1035 this a.m. MD Figueroa at bedside discussing antibiotics and woundcare with RN, will educate patient's . Patient is alert, VSS, on RA. Denies pain. Continuous monitoring.
[2022-12-19] MEDS: levoFLOXacin 500 MG/100 ML PIGGYBACK 100 MG IV (11:54)
[2022-12-19] MEDS: hydroCHLOROthiazide 25 MG TABLET 12.5 MG PO (12:03)
--- NOTE | 2022-12-19 14:33 | P.PN_ITS ---
Subjective Subjective Interval history: Patient is currently postoperative. Has postoperative pain but feels good in general. Voiced no new concerns. Exam Vital Signs (past 8 hours): - 12/19/22 08:57 12/19/22 10:03 12/19/22 10:09 Temperature 97.9 F 97.4 F L Pulse Rate 75 67 70 Respiratory Rate 20 11 L 11 L Blood Pressure 173/89 H 134/69 128/68 Pulse Oximetry 99 96 97 Oxygen Delivery Method Room Air Room Air Room Air Oxygen Flow Rate 12/19/22 10:13 12/19/22 10:19 12/19/22 08:43 Temperature 98.9 F Pulse Rate 70 68 75 Respiratory Rate 14 16 18 Blood Pressure 136/80 123/75 173/89 H Pulse Oximetry 97 98 99 Oxygen Delivery Method Room Air Room Air Oxygen Flow Rate 12/19/22 12:03 Temperature 98 F Pulse Rate 61 Respiratory Rate 16 Blood Pressure 148/66 H Pulse Oximetry 99 Oxygen Delivery Method Oxygen Flow Rate 0 Oxygen Delivery Method Room Air Oxygen Flow Rate 0 Narrative Exam Narrative: General: No acute medical distress. Alert and oriented. HEENT: Pupils equal reactive to light extraocular movements normal. Head is normocephalic, trachea is midline. Cardiovascular: Heart sounds S1 and S2. No extra sounds or murmurs Respiratory: Adequate air entry throughout the lung gilman. No wheezes or crackles. Extremities: Right foot is in postop dressing. Objective Labs 12/19/22 04:31 12/19/22 04:31 Labs: Laboratory Results - last 24 hr 12/18/22 12/18/22 12/18/22 16:20 16:20 16:20 WBC 10.8 RBC 4.27 L Hgb 14.1 Hct 39.9 L MCV 93.5 MCH 33.1 MCHC 35.4 RDW 12.7 Plt Count 398 Neut % (Auto) 68.3 Lymph % (Auto) 20.3 L [place] % (Auto) 7.1 Eos % (Auto) 3.5 Baso % (Auto) 0.8 Neut # (Auto) 7400 H Lymph # (Auto) 2200 [place] # (Auto) 800 Eos # (Auto) 400 Baso # (Auto) 100 ESR PT 12.2 INR 1.1 APTT 32 Sodium 127 L Potassium 4.5 Chloride 90 L Carbon Dioxide 27 BUN 19 Creatinine 0.95 Estimated GFR > 60 BUN/Creatinine Ratio 20.0 Glucose 404 H Lactate Calcium 9.9 Total Bilirubin 0.7 AST 30 ALT 26 Alkaline Phosphatase 142 H C-Reactive Protein Total Protein 8.4 H Albumin 4.2 Globulin 4.2 H Albumin/Globulin Ratio 1.0 Lipase 204 Procalcitonin 0.10 12/18/22 12/18/22 12/18/22 16:20 16:20 16:20 WBC RBC Hgb Hct MCV MCH MCHC RDW Plt Count Neut % (Auto) Lymph % (Auto) [place] % (Auto) Eos % (Auto) Baso % (Auto) Neut # (Auto) Lymph # (Auto) [place] # (Auto) Eos # (Auto) Baso # (Auto) ESR 71 H PT INR APTT Sodium Potassium Chloride Carbon Dioxide BUN Creatinine Estimated GFR BUN/Creatinine Ratio Glucose Lactate 2.5 H Calcium Total Bilirubin AST ALT Alkaline Phosphatase C-Reactive Protein 4.0 H Total Protein Albumin Globulin Albumin/Globulin Ratio Lipase Procalcitonin 12/18/22 12/19/22 12/19/22 18:19 04:31 04:31 WBC 8.2 RBC 3.68 L Hgb 12.3 L Hct 35.0 L MCV 95.0 MCH 33.4 MCHC 35.2 RDW 12.8 Plt Count 336 Neut % (Auto) 65.4 Lymph % (Auto) 22.1 L [place] % (Auto) 6.5 Eos % (Auto) 5.4 H Baso % (Auto) 0.6 Neut # (Auto) 5400 Lymph # (Auto) 1800 [place] # (Auto) 500 Eos # (Auto) 400 Baso # (Auto) 0 ESR PT INR APTT Sodium 131 L Potassium 4.1 Chloride 96 L Carbon Dioxide 28 BUN 20 Creatinine 0.73 Estimated GFR > 60 BUN/Creatinine Ratio 27.4 H Glucose 275 H D Lactate 1.4 Calcium 9.1 Total Bilirubin AST ALT Alkaline Phosphatase C-Reactive Protein Total Protein Albumin Globulin Albumin/Globulin Ratio Lipase Procalcitonin [facility] Social History household members: spouse Smoking Status: Former smoker Assessment & Plan Assessment & Plan narrative: 1. Rt 2nd toe OM, Rt foot cellulitis Postoperative today from right 2nd toe amputation. Patient placed on levofloxacin antibiotic treatment 500 mg IV daily 2. DM Currently postoperative. We will reinitiate patient's oral medication -her ordered by surgeon. 3. Hyponatremia Continue to follow labs. 4. HLD - statin Atorvastatin 80 mg daily. 5. HTN - HCTZ and Lisinopril at home Restarted postoperatively. Code status: Full code DVT prophylaxis: Enoxaparin 40 mg subcu daily starting tomorrow Surrogate decision maker: tara Ellis COVID-19 COVID-19 status: Not tested Time Spent With Patient Time with patient: less than 30 minutes Quality VTE Deep Vein Thrombosis/Pulmonary Embolism Present on Admission: No MIPS - Admit I confirm the patient?s Advance Care Plan is present, Code status is documented, Surrogate decision maker is in patient?s record [If Yes, STOP here]: Yes MIPS - Meds 'Current medications' to include all prescriptions, [id number] products, herbals, cannabis/cannabidiol products, and vitamin/mineral/dietary (nutritional) supplements. I have utilized all available resources to obtain, update, or review the patient?s current medications. [If Yes, STOP here]: Yes
--- NOTE | 2022-12-19 16:50 | PC.NURSE ---
Patient's BG check prior to dinner was 397 on first test. 2nd test was 440. MD Figueroa notified and received orders to modify lispro to high dose SSI.
[2022-12-19] MEDS: METFORMIN HCL 500 MG TABLET 1000 MG PO (20:12)
[2022-12-19] MEDS: HYDROCODONE/ACET 5/325 TABLET 1 TAB PO (20:12)
[2022-12-19] MEDS: ATORVASTATIN 20 MG TABLET 80 MG PO (20:13)
[2022-12-19] MEDS: DOCUSATE 100 MG CAPSULE PO (20:13)
[2022-12-19] MEDS: SODIUM CHLORIDE 0.9% FLUSH 10 ML IV (20:19)
[2022-12-20 04:00] VITALS: BP 148/78; PULSE 72; RESP 22; TEMP 36.2; O2SAT 97
[2022-12-20] MEDS: HYDROCODONE/ACET 5/325 TABLET 1 TAB PO (04:15)
[2022-12-20 07:52] VITALS: BP 180/80; PULSE 70; RESP 18; TEMP 36.1; O2SAT 99
[2022-12-20] MEDS: SODIUM CHLORIDE 0.9% FLUSH 10 ML IV (08:17)
[2022-12-20] MEDS: ENOXAPARIN 40 MG/0.4 ML SYRINGE SUBCUT (08:18)
[2022-12-20] MEDS: ASPIRIN 81 MG CHEW TAB PO (08:18)
[2022-12-20] MEDS: hydroCHLOROthiazide 25 MG TABLET 12.5 MG PO (08:18)
[2022-12-20 08:19] VITALS: BP 180/80; PULSE 70
[2022-12-20] MEDS: METFORMIN HCL 500 MG TABLET 1000 MG PO (08:19)
[2022-12-20] MEDS: lisinopriL 20 MG TABLET PO (08:19)
[2022-12-20] MEDS: INSULIN LISPRO 100 UNIT/ML 3ML VIAL SUBCUT (08:23)
[2022-12-20] MEDS: MORPHINE 2 MG/ML INJ IV (08:56)
--- NOTE | 2022-12-20 09:17 | P.DS_ITS ---
History of Present Illness History of Present Illness Date Patient Seen: 12/20/22 Time Patient Seen: 09:17 Chief complaint: Foot inf. Narrative: Operative Date/Time/Diagnoses Date of procedure: 12/19/22 Time of procedure: 10:07 Pre-op diagnosis: Right necrotic 2nd toe Post-op diagnosis: same Procedure & Clinicians Procedure: Right 2nd toe amputation (at the MTP) Same procedure as scheduled: Yes Indications: This is a 62-year-old type 2 diabetic male who presented to the ED with rising erythema and a necrotic 2nd toe.? In order for infection control we discussed possible 2nd toe amputation.? We again discussed risks before surgery.? He acknowledged risks and wished to go forward with surgery. Surgeon: Hernan Figueroa Click Yes if Unassisted: No Anesthesia Type: General Operative Notes Findings: Necrosis of the right 2nd toe which ended just distal to the MTP joint Closure Type: primary Prosthetic devices, grafts, tissues, transplants, or devices: Packing intentionally left in the wound with a wick Estimated Blood Loss (mL): 10 Blood products transfused: none Tourniquet time (min): 29 Discharge Providers Provider Date of admission: 12/18/22 17:53 Discharge Date: 12/20/22 Primary care physician: Slim Hill MD Discharge provider: Audelia Reilly PA-C Summary Hospital Course Discharge Diagnosis: Right necrotic 2nd toe, s/p amputation Hospital Course: Mr Giordano's hospital course was unremarkable. ON the morning of POD# 1 he was feeling well and wanted to go home. He was eating and voiding without difficulty. Dressing changes with wet gauze packing and dry gauze overlay were demonstrated to pt and he felt comfortable doing this on his own with the help of his spouse. He had very little pain d/t chronic neuropathy. Exam Vital Signs (past 8 hours): - 12/20/22 04:00 12/20/22 07:52 12/20/22 08:19 Temperature 97.1 F L 97.0 F L Pulse Rate 72 70 70 Respiratory Rate 22 18 Blood Pressure 148/78 H 180/80 H 180/80 H Pulse Oximetry 97 99 Oxygen Flow Rate 0 Oxygen Delivery Method Room Air Oxygen Flow Rate 0 Narrative Exam Narrative: Incision site w/ some bleeding with removal of packing, no purulence noted. Nylon sutures in place. Objective Labs 12/19/22 04:31 12/19/22 04:31 [facility] Social History household members: spouse Smoking Status: Former smoker Discharge Assessment & Plan Assessment and Plan Assessment: Right necrotic 2nd toe, s/p amputation Plan of Treatment: Discharge home, daily wet-to-dry dressing changes. Levofloxacin 500mg PO x 14 days. Hospitalist service started pt on enoxaparin for VTE prophylaxis, but can probably change to ASA BID for discharge as pt is ambulatory. F/u in office for suture removal/wound check in 2-3 weeks. Discharge Plan Discharge Plan Patient Disposition: Home Discharge orders & Medications Prescriptions: New hydrocodone-acetaminophen 5-325 mg Tablet 1 tab PO Q6HR PRN (Reason: Pain, Moderate (4-6)) Qty: 30 0RF aspirin 81 mg tablet,chewable 81 mg PO BID Qty: 60 0RF levofloxacin 500 mg tablet 500 mg PO DAILY Qty: 14 0RF Continued atorvastatin [Lipitor] 80 MG tablet 80 mg PO HS Qty: 90 1RF pioglitazone [Actos] 45 MG tablet 45 mg PO QDAY Qty: 90 1RF metformin 1,000 MG tablet 1,000 mg PO BID Qty: 180 1RF hydrochlorothiazide [Microzide] 12.5 MG capsule 12.5 mg PO QDAY Qty: 90 1RF lisinopril 20 mg tablet 20 mg PO DAILY Jardiance 25 mg tablet 25 mg PO DAILY Discontinued Adult Low Dose Aspirin 81 mg Tablet 81 mg PO DAILY Follow up/Referrals: Slim Hill MD [Primary Care Provider] - Hernan Figueroa MD [Physician] - 2 Weeks (Follow up w/ Dr Figueroa in 2-3 weeks for suture removal and wound check.) Diet/Activity/Treatments Diet: Diet as Tolerated Activity: WBAT to right foot. Skin/Wound/Dressing Care Report to your healthcare provider any signs of infection, such as:: chills, fever, night sweats, unusual drainage and unusual redness Dressing: Change dressing daily; damp gauze packing, dry gauze on top. Visit Report/Discharge Packet Instructions: DI for Prescription Opioid Use Stand Alone Forms: Patient Portal/API, Stroke Signs & Symptoms, Surgery Discharge Discharge Data Primary Care Provider: Slim Hill Quality VTE Deep Vein Thrombosis/Pulmonary Embolism Present on Admission: No
[2022-12-20 09:31] VITALS: BP 170/79
[2022-12-20] MEDS: levoFLOXacin 500 MG/100 ML PIGGYBACK 100 MG IV (10:03)
--- NOTE | 2022-12-20 15:34 | CM.DPC ---
DCP Discharge Home Per Ortho, pt tolerated surgical amputation well and to have 2 weeks of oral abx and provided wound dressing changes training to RN who completed with pt's spouse bedside and pt in agreement with d/c back to [place] today via spouse POV and outpt f/u and no further needs at this time. MARTA Pang
== END 2022-12-20 11:06 | disposition home or self-care (01) | DRG 504 ==
LOC: ED 17:30 → AC 17:54
PROVIDERS: Internal Medicine; Admitting Provider Neuromusculoskeletal Medicine, Sports Medicine; Emergency Provider Emergency Medicine; PCP Family Medicine; Referring Provider Emergency Medicine; Visit Provider Orthopaedic Surgery
PROC: 0Y6R0Z2 Detachment at Right 2nd Toe, Mid, Open Approach (ICD-10-PCS; principal; 2022-12-19 09:00)
DX: M86.9 Osteomyelitis, unspecified (principal); E11.52 Type 2 diabetes mellitus with diabetic peripheral angiopathy with gangrene; E87.1 Hypo-osmolality and hyponatremia; I96 Gangrene, not elsewhere classified; L03.031 Cellulitis of right toe; I10 Essential (primary) hypertension; E78.5 Hyperlipidemia, unspecified; E11.40 Type 2 diabetes mellitus with diabetic neuropathy, unspecified; E11.69 Type 2 diabetes mellitus with other specified complication; Z87.891 Personal history of nicotine dependence; Z79.84 Long term (current) use of oral hypoglycemic drugs
CPT/HCPCS: 36415; 73630; 80048; 80053; 82962; 83605; 83690; 84145; 85025; 85610; 85651; 85730; 86140; 87040; 93005; 99284; 99285; J1650; J1815; J1956; J2185; J2250; J2270; J2405; J2704; J2765; J3010